=== PATIENT | female | born 1955 | race Caucasian/White ===

== ENCOUNTER 2023-02-24 08:05 | Day surgery (SDC) | payer OTHER ==
[2023-02-24] VITALS (13 sets, daily range): BP systolic 90–107; BP diastolic 47–65; PULSE 57–71
[~2023-02-24] VITALS: Ht 157.5 cm; Wt 63.6 kg
[~2023-02-24 08:05] MED LIST: SODIUM CHLORIDE 0.9% 1,000 ML ONE
[2023-02-24] MEDS ORDERED: SODIUM CHLORIDE 0.9% 1,000 ML IV ONE (08:30)
[2023-02-24] MEDS ORDERED: DiphenhydrAMINE HCL 50 MG CAPSULE ONE (08:58)
[2023-02-24] MEDS ORDERED: ASPIRIN 81 MG CHEWABLE TABLET ONE (08:58)
[2023-02-24] MEDS ORDERED: DIAZEPAM 5 MG TABLET ONE (08:59)
[2023-02-24] MEDS ORDERED: DiphenhydrAMINE HCL 50 MG CAPSULE PO ONE (10:30)
[2023-02-24] MEDS ORDERED: DIAZEPAM 5 MG TABLET PO ONE (10:30)
[2023-02-24] MEDS ORDERED: ASPIRIN 81 MG CHEWABLE TABLET PO ONE (10:30)
[2023-02-24] MEDS ORDERED: SODIUM BICARBONATE 50 MEQ/50 ML VIAL ONE (10:47)
[2023-02-24] MEDS ORDERED: IOHEXOL 300 MG/ML 100 ML VIAL ONE (10:47)
[2023-02-24] MEDS ORDERED: LIDOCAINE/PF 1% 30 ML VIAL ONE (10:47)
[2023-02-24] MEDS ORDERED: HEPARIN SODIUM 1000 UNITS/NS 1,000 ML ONE (10:48)
[2023-02-24] MEDS ORDERED: MIDAZOLAM HCL 2 MG/2 ML VIAL ONE (11:32)
[2023-02-24] MEDS ORDERED: FentaNYL CITRATE PF 100 MCG/2 ML VIAL ONE (11:32)
[2023-02-24] MEDS ORDERED: FentaNYL CITRATE PF 100 MCG/2 ML VIAL IVP ONE (11:45)
[2023-02-24] MEDS ORDERED: LIDOCAINE 1% 30 ML/SOD BICARB 8.4% 4 ML SQ ONE (11:45)
[2023-02-24] MEDS ORDERED: HEPARIN SODIUM 1000 UNITS/NS 1,000 ML IARTER ONE (11:45)
[2023-02-24] MEDS ORDERED: MIDAZOLAM HCL 2 MG/2 ML VIAL IVP ONE (11:45)
[2023-02-24] MEDS ORDERED: IOHEXOL 300 MG/ML 100 ML VIAL IARTER ONE (11:45)
[2023-02-24] MEDS ORDERED: SACU1TAB PO (11:55)
[2023-02-24] MEDS ORDERED: ESCI-8 PO (11:55)
[2023-02-24] MEDS ORDERED: SPIR-37 PO (11:55)
== END 2023-02-24 16:40 | disposition home or self-care (01) ==
LOC: CATHLAB 08:05
PROVIDERS: ATTEND Internal Medicine Interventional Cardiology
DX: R94.39 Abnormal result of other cardiovascular function study (principal); I42.9 Cardiomyopathy, unspecified; I44.7 Left bundle-branch block, unspecified; I50.30 Unspecified diastolic (congestive) heart failure; Z90.49 Acquired absence of other specified parts of digestive tract; Z98.890 Other specified postprocedural states
CPT/HCPCS: 93458; 93005; 99152; C1760; J3010; J1644; J3490 ×2; J2250; J7030; Q9967